=== PATIENT | female | born 1955 | race Caucasian/White ===

== ENCOUNTER → 2023-11-01 11:02 | Outpatient (REF) | payer OTHER, SELFPAY | LOC: HWWDC 11:02 | PROVIDERS: ATTENDING PHYSICIAN Family Medicine | DX: Z12.31 Encounter for screening mammogram for malignant neoplasm of breast (principal); Z87.891 Personal history of nicotine dependence | CPT/HCPCS: 71271; 77063; 77067 ==

== ENCOUNTER → 2023-11-13 14:50 | Outpatient (REF) | payer OTHER, SELFPAY | LOC: HWRAD 14:50 | PROVIDERS: ATTENDING PHYSICIAN Family Medicine | DX: Z13.820 Encounter for screening for osteoporosis (principal) | CPT/HCPCS: 77080 ==

== ENCOUNTER → 2024-04-21 06:28 | Day surgery (SDC) | payer OTHER, SELFPAY | LOC: GI 06:28 | PROVIDERS: ATTENDING PHYSICIAN Internal Medicine Gastroenterology | DX: Z12.11 Encounter for screening for malignant neoplasm of colon (principal); D12.3 Benign neoplasm of transverse colon; D12.4 Benign neoplasm of descending colon; K57.30 Diverticulosis of large intestine without perforation or abscess without bleeding; K62.1 Rectal polyp | CPT/HCPCS: 45385; 45380; 88305 ==

== ENCOUNTER → 2024-08-14 12:58 | Outpatient (REF) | payer OTHER, SELFPAY | LOC: HWRAD 12:58 | PROVIDERS: ATTENDING PHYSICIAN Physical Medicine & Rehabilitation; FAMILY PHYSICIAN Family Medicine | DX: M25.561 Pain in right knee (principal); M21.061 Valgus deformity, not elsewhere classified, right knee; M17.4 Other bilateral secondary osteoarthritis of knee | CPT/HCPCS: 73562; 73565 ==

== ENCOUNTER 2024-09-26 13:51 | Outpatient (RCR) | payer OTHER, SELFPAY | END 2024-09-26 23:59 | disposition home or self-care (01) | LOC: RPT 13:51 | PROVIDERS: ATTENDING PHYSICIAN Physical Medicine & Rehabilitation; FAMILY PHYSICIAN Family Medicine | DX: M25.561 Pain in right knee (principal); M25.562 Pain in left knee; Z73.6 Limitation of activities due to disability; R26.2 Difficulty in walking, not elsewhere classified; M62.81 Muscle weakness (generalized); M25.551 Pain in right hip | CPT/HCPCS: 97010; 97110; 97112; 97161 ==

== ENCOUNTER 2024-10-31 13:04 | Outpatient (RCR) | payer OTHER, SELFPAY | END 2024-10-31 23:59 | disposition home or self-care (01) | LOC: RPT 13:04 | PROVIDERS: ATTENDING PHYSICIAN Physical Medicine & Rehabilitation; FAMILY PHYSICIAN Family Medicine | DX: M25.561 Pain in right knee (principal); M25.562 Pain in left knee; Z73.6 Limitation of activities due to disability; R26.2 Difficulty in walking, not elsewhere classified; M62.81 Muscle weakness (generalized); M25.551 Pain in right hip | CPT/HCPCS: 97010; 97110; 97112 ==

== ENCOUNTER 2024-11-07 14:03 | Outpatient (RCR) | payer OTHER, SELFPAY | END 2024-11-07 23:59 | disposition home or self-care (01) | LOC: RPT 14:03 | PROVIDERS: ATTENDING PHYSICIAN Physical Medicine & Rehabilitation; FAMILY PHYSICIAN Family Medicine | DX: M25.561 Pain in right knee (principal); M25.562 Pain in left knee; Z73.6 Limitation of activities due to disability; R26.2 Difficulty in walking, not elsewhere classified; M62.81 Muscle weakness (generalized); M25.551 Pain in right hip | CPT/HCPCS: 97110; 97112 ==

== ENCOUNTER 2024-11-13 17:13 | Observation (INO) | payer OTHER, SELFPAY ==
[2024-11-13 13:01] VITALS: BP 179/99
[2024-11-13 13:11] VITALS: BMI 34.3
[2024-11-13 13:39] VITALS: BP 137/72
--- NOTE | 2024-11-13 14:33 | ED.GENMED ---
History of Present Illness
General
Chief Complaint: Fall
Source: patient
Time Seen by Provider: 11/13/24 14:13
History of Present Illness
History of Present Illness:
The patient is a 68-year-old female who presented to the emergency department with complaints of pain in the right knee and foot following a fall. The patient reported that she frequently experiences unsteadiness when standing, requiring her to hold
onto something until she feels stable. Early this morning, around 4:00 AM, she woke up to use the bathroom and fell while attempting to stand and walk without adequate steadiness.
After the fall, she managed to drag herself back into bed. She reports difficulty in bearing weight on the affected foot and had assistance from a friend to reach the emergency department. She described her apartment as being small, making it easier
for her to return to bed after the incident. She noted some mild soreness in other areas but denied any significant injuries or hitting her head during the fall.
Additionally, she reports no chest pain, shortness of breath, or abdominal pain.
The medications the patient is on include Synthroid (Levothyroxine), Trulicity (intrigdico), and oxycodone as needed.
Past History
Past History
ED Past Medical History: Asthma, COPD, GERD, HTN, Hypothyroidism, Psychiatric and Other (Chronic hip pain)
ED Past Surgical History: Cholecystectomy, (X2), Gynecological, Orthopedic and Other (Hernia repair)
Social History
Tobacco: Former smoker
Alcohol: None
Drug: None
Personal: Other (Seperated)
Living: with family (With her son)
Employment: Not employed
Family History
Family History: Other (Noncontributory)
Phy Exam
Physical Exam
Physical Exam:
General: Awake, Alert, Oriented X3. No acute distress.
Vitals: unremarkable
Head: Atraumatic
Eyes: Pupils equal, EOMI
Throat: Airway intact, no exudates
Neck: Trachea midline
Lungs: Clear and equal b/l
Heart: Regular rate, no murmurs
Abd: Soft, Nontender, No pulsatile mass
Rectal:
Neuro: Cranial nerves intact, muscle strength equal bilaterally, cerebellar exam normal
Skin: Warm, dry, no rash
Extremities: pulses equal b/l, no edema. enderness noted on palpation of the right foot, particularly over the lateral malleolus. Right tibia was also tender upon palpation. The patient is able to lift her right leg against gravity.
l
Course
Orders/Labs/Results
Orders:
Orders
11/13/24 14:12
CR Ankle - Right Min 3 Views * Urgent
Comment:
Reason For Exam: fall- tender
CR Knee- Right 4 Or More View* Urgent
Comment:
Reason For Exam: fall- tender
Foot, Right 3 View [CR Foot - Right Min 3 Views] Urgent
Comment:
Reason For Exam: fall- tender
11/13/24 15:26
Case Management Consult ONCE
Case Management Consult: Discharge Planning
PT Consult [Pt Eval And Treat] Urgent
Activity Level: As Tolerated
11/13/24 15:27
Acetaminophen [Tylenol] 1,000 mg PO NOW STA
11/13/24 15:28
Joao Wrap Right-Treatment ONCE
Comment: ankle
Vital Signs
Initial and Last Documented VS:
Initial Vital Signs
Temp Pulse Resp BP Pulse Ox
98.2 F 107 18 179/99 97
11/13/24 13:01 11/13/24 13:01 11/13/24 13:01 11/13/24 13:01 11/13/24 13:01
Last Documented Vital Signs
Temp Pulse Resp BP Pulse Ox
98.2 F 89 18 123/64 97
11/13/24 13:01 11/13/24 15:03 11/13/24 15:03 11/13/24 15:03 11/13/24 15:03
MDM/Problems Addressed
Differential Diagnosis Includes:
The Differential Diagnosis includes, in no particular order and is not limited to:
1. Fracture of the right knee or ankle
2. Ankle sprain
3. Ligamentous injury of the knee
4. Contusion from the fall
5. Osteoarthritis exacerbation
*Radiology
Radiology exam reviewed: preliminary read by ED provider (No acute fracture noted)
*Pulse Oximetry
Patient hypoxic: no
*Critical Care Note
Total Time (30-74mins, 75-104mins- exclusive of procedures): Not Applicable
ED Attending Note
-
Portions of this chart may have been created with voice recognition software.� Occasional wrong word or��sound alike� substitutions may have occurred due to the inherent limitations of voice recognition software.
Discharge Plan
Departure
Prescriptions:
No Action
albuterol sulfate 1 PUFF HFA aerosol inhaler
1 puff inhalation R Q4HPRN PRN (Reason: sob)
oxycodone 5 MG tablet
5 mg PO [id number] PRN (Reason: moderate pain)
Patient Comments:
08/17/2021: last filled 07/22/21, 60 tabs for 30 days from [id number]
alprazolam 1 MG tablet
1 mg PO DAILYPRN PRN (Reason: anxiety)
Patient Comments:
08/17/2021: last filled 08/08/21, 90 tabs for 30 days from [id number]
levothyroxine 100 MCG tablet
100 mcg PO DAILY
Patient Comments:
08/17/2021: BRAND NAME
bicxbgnxzta-rjlbjryzv-llcdlclp [Trelegy Ellipta] 1 EACH blister with device
1 puff inhalation R DAILY
alprazolam 1 MG tablet
1 mg PO BID
Patient Comments:
08/17/2021: last filled 08/08/21, 90 tabs for 30 days from [id number]
acetaminophen 325 MG tablet
650 mg PO Q4HPRN PRN (Reason: mild pain/PARSONS/temp> 100.4F) Qty: 100 0RF
riboflavin (vitamin B2) [Ribo-100] 100 MG tablet
400 mg PO DAILY Qty: 120 0RF
magnesium oxide 500 MG tablet
500 mg PO DAILY Qty: 30 0RF
prednisone 20 mg tablet
40 mg PO DAILY 7 Days Qty: 14 0RF
lidocaine [Lidoderm] 5 % adhesive patch,medicated
1 patch topical Q24H Qty: 15 0RF
oxycodone-acetaminophen [Percocet] 5-325 mg tablet
1 tab PO Q6HPRN PRN (Reason: pain) Qty: 7 0RF
Referrals:
Tanya Burnham DO [Family Provider, Family Practice]
Interventions
Interventions:
*Risk Screen - Suicide Last Done: 11/13/24 13:01
*General Assessment Last Done: 11/13/24 13:01
*Neglect/Abuse Screening Last Done: 11/13/24 13:01
*ED- Fall Risk Assessment Last Done: 11/13/24 13:12
*ED COVID-19 Vaccine History Last Done: 11/13/24 13:12
ED-Musculoskeletal Assessment Last Done: 11/13/24 13:12
ED- Neurological Assessment Last Done: 11/13/24 13:12
ED-Skin Assessment Last Done: 11/13/24 13:12
Discharge Date and Time
Print Language: LUXEMBOURGER
[2024-11-13 15:03] VITALS: BP 123/64
[2024-11-13] MEDS: TYLENOL 1000 MG PO (15:39)
--- NOTE | 2024-11-13 16:25 | CM ---
CM reviewed chart and met with pt bedside in ED. Pt lives alone in apartment, no KENDRA but 3 steps to BA, all other living area on one floor. Has cane whish she uses when she leaves the home, ambulates independently at home. No other DME.
Hx [facility] in past, hx acute rehab at [facility] after an accident, no hx SNF.
Seen by PT, not safe for dc home with walker
Discussed with Dr Merchant, will plan for admission overnight.
Pt agreeable to SNF or home with VN.
PCP: Tanya Burnham
Pharmacy: [facility]
Plan: home with services vs SNF pending ongoing medical evaluation
--- NOTE | 2024-11-13 16:43 | HPS.HSE ---
Family Physician
-
Family Physician: Tanya Burnham
Chief Complaint
-
right leg pain
History of Present Illness
68-year-old female past medical history of asthma/COPD, hypertension, GERD, hypothyroidism, chronic hip pain, presenting to the emergency room with right knee pain and foot following a fall. Patient frequently experiences unsteadiness when standing
requiring her to hold onto something until she feels stable. This morning at 4 AM she went up to the bathroom and fell while attempting to stand. She lives alone.
After the fall she managed to drag herself back to bed and had difficulty bearing weight on the affected foot and had assistance for friend to reach the emergency room. She has some mild soreness but denied hitting her head or significant injury.
She denies smoking or alcohol use.
Medical History
Past Medical History
Past Medical History: Reports Other (asthma/COPD, hypertension, GERD, hypothyroidism, chronic hip pain,)
Past Surgical History: Reports Other (Cholecystectomy, (X2), Gynecological, Orthopedic and Other (Hernia repair))
Social History
Tobacco: Non-smoker
Alcohol: None
Drug: None
Family History
Family History: Not pertinent
Allergies / Home Medications
Allergies reflects when Allergies were last updated in [employer].
Home Medications with original date entered in [employer] [facility]
Allergy/Medication List:
Allergies
Allergy/AdvReac Type Severity Reaction Status Date / Time
aspirin Allergy Tinnitus Verified 11/13/24 13:00
erythromycin base Allergy Vomiting Verified 11/13/24 13:00
iodine Allergy Anaphylaxis Verified 11/13/24 13:00
NSAIDS (Non-Steroidal Allergy TINNITUS Verified 11/13/24 13:00
Anti-Inflamma
pseudoephedrine HCl (From Allergy RAPID Verified 11/13/24 13:00
Sudafed) HEARTBEAT
Salicylates * Allergy Vomiting Verified 11/13/24 13:00
tramadol Allergy tremor and Verified 11/13/24 13:00
disequilibrium
Home Medications
albuterol sulfate 90 mcg/actuation aerosol inhaler 1 puff inhalation R Q4HPRN PRN sob 05/23/18
oxycodone 5 mg tablet 5 mg PO [id number] PRN moderate pain 03/19/19
fluticasone fur. 200 mcg-umeclid 62.5 mcg-vilant 25 mcg inhalat.powder (Trelegy Ellipta) 1 puff inhalation R DAILY Lung/breathing issues 08/17/21
magnesium oxide 500 mg PO DAILY #30 tabs 08/19/21
alprazolam 1 mg tablet 1 mg PO TID 11/13/24
calcium carbonate 500 mg PO DAILY 11/13/24
cholecalciferol (vitamin D3) 10 mcg (400 unit) tablet (Vitamin D3) 10 mcg PO DAILY 11/13/24
cyanocobalamin (vitamin B-12) 50 mcg tablet (Vitamin B-12) 50 mcg PO DAILY 11/13/24
levothyroxine 112 mcg tablet (Synthroid) 112 mcg PO DAILY 11/13/24
Review of Systems
-
History Source: Patient
A 12 point ROS was completed and negative except as noted: Yes
Constitutional: Reports No Symptoms
EENT: Reports No Symptoms
Respiratory: Reports No Symptoms
Cardiac: Reports No Symptoms
Abdomen/GI: Reports No Symptoms
: Reports No Symptoms
Musculoskeletal: Reports See HPI
Skin: Reports No Symptoms
Neurological: Reports No Symptoms
Endocrine: Reports No Symptoms
Hematologic/Lymphatic: Reports No Symptoms
Psych: Reports No Symptoms
Physical Exam
Vital Signs
Vital Signs
Temp Pulse Resp BP Pulse Ox
98.2 F 89 18 123/64 97
11/13/24 13:01 11/13/24 15:03 11/13/24 15:03 11/13/24 15:03 11/13/24 15:03
Physical Exam
General: Well Developed, Well Nourished and No Apparent Distress
HEENT: NormoCephalic, Moist mucous membranes and Atraumatic
Respiratory: Clear
Cardiac: S1/S2 and Regular Rhythm; No Murmur or Rub
GI: Soft, Non Tender, Non Distended and Normal Bowel Sounds; No Organomegaly
Rectal: Deferred by Provider
Musculoskeletal: No Clubbing, No Cyanosis and No Edema
Skin: No Rash
Neuro: Nonfocal/grossly intact
Data Reviewed
-
Lab Data: Labs Reviewed by me
Old Records: Reviewed
Impression/Plan
-
IMPRESSION:
PLAN:
# Right ankle/knee sprain
# Chronic arthritis with effusion of right knee
- Knee x-ray shows no evidence of fracture or dislocation, moderate to large suprapatellar joint effusion appears increased from previous radiographs
- Foot x-ray shows no evidence of acute fracture or dislocation
- Ankle x-ray negative
-Joao wrap placed
-Tylenol, home oxycodone for pain
- Case management could not place in SNF today so will be arranged for tomorrow
Asthma/COPD
- Continue albuterol, Breo
Essential hypertension
GERD
Hypothyroidism
-Continue levothyroxine
Chronic hip pain/severe arthritis
- Continue oxycodone
Anxiety
- Continue alprazolam
Full code
DVT prophylaxis�heparin
Regular diet
[2024-11-13 17:28] VITALS: BP 148/78
[2024-11-13 18:04] VITALS: BMI 33.4
[2024-11-13 18:20] VITALS: BP 150/83
[2024-11-13] MEDS: ROXICODONE 5 MG PO (18:28)
--- NOTE | 2024-11-13 19:03 | PTCARENOTE ---
Patient arrived to unit around 1810 this shift. 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 Pt reports pain in RLE. PRN oxycodone administered. Dinner ordered. Pt oriented to room and staff. All needs met at this time. Plan of care ongoing.
[2024-11-13] MEDS: SYMBICORT 160/4.5 MCG INHALER INH (20:14)
[2024-11-13] MEDS: HEPARIN 5000 UNITS SC (20:23)
[2024-11-13] MEDS: TYLENOL 650 MG PO (21:19)
[2024-11-13] MEDS: XANAX 1 MG PO (21:54)
[2024-11-13 23:05] VITALS: BP 128/75
[2024-11-14] MEDS: TYLENOL 650 MG PO (03:24)
[2024-11-14 05:17] VITALS: BMI 33.5
[2024-11-14 06:20] LABS: % Basophils 1.4 % (0-2); % Eosinophils 1.9 % (0-6); % Immature Granulocytes 0.2 % (0-0.5); % Monocytes 7.2 % (1.7-9.3); % Neutrophils 67.3 % (42.2-75.2); Absolute Basophils 0.1 10^3/uL (0-0.2); Absolute Eosinophils 0.1 10^3/uL (0-0.7); Absolute Lymphocytes 1.3 10^3/uL (1.2-3.4); Absolute Monocytes 0.4 10^3/uL (0.1-0.6); Absolute Neutrophils 3.8 10^3/uL (1.4-6.5); Hematocrit 37.7 % (37.0-47.0); Hemoglobin 13.3 g/dL (12.0-16.0); Mean Corp Hgb Conc. 35.3 g/dL (33.0-37.0); Mean Corpuscular Hgb 32.8 pg (27.0-31.0); Mean Corpuscular Volume 93.1 fL (81.0-99.0); Mean Platelet Volume 11.3 fL (7.4-10.4); Nucleated Red Blood Cells % 0 %; Platelet Count 214 10^3/uL (130-400); Red Blood Cell Count 4.05 10^6/uL (4.20-5.40); Red Cell Dist. Width 13.2 % (11.5-14.5); White Blood Cell Count 5.7 10^3/uL (4.8-10.8)
[2024-11-14] MEDS: ROXICODONE 5 MG PO ×4 (06:32→23:41)
[2024-11-14] MEDS: SYNTHROID 112 MCG PO (06:32)
[2024-11-14 06:49] LABS: ALT (SGPT) 23 U/L (0-35); AST (SGOT) 23 U/L (14-36); Alkaline Phosphatase 101 U/L (38-126); Blood Urea Nitrogen 17 mg/dl (7-17); Calcium 9.2 mg/dl (8.4-10.2); Carbon Dioxide 25 mmol/L (22-30); Chloride 108 mmol/L (98-107); Estimated Creatinine Clearance 54 ml/min; Glucose 105 mg/dl (70-99); Potassium 4.1 mmol/L (3.5-5.1); Sodium 140 mmol/L (135-145); Total Bilirubin 0.9 mg/dl (0.2-1.3); Total Protein 6.6 g/dl (6.3-8.2); eGFR > 60.00
[2024-11-14 07:00] VITALS: BP 161/81
[2024-11-14] MEDS: OSCAL CAL 500 500 MG PO (07:36)
[2024-11-14] MEDS: VITAMIN D3 (cholecalciferol) 10 MCG PO (07:36)
[2024-11-14] MEDS: HEPARIN 5000 UNITS SC ×2 (07:36→22:06)
[2024-11-14] MEDS: MAGNESIUM OXIDE 500 MG PO (07:36)
[2024-11-14] MEDS: XANAX 1 MG PO ×3 (07:36→22:07)
[2024-11-14] MEDS: VITAMIN B-12 50 MCG PO (07:36)
[2024-11-14] MEDS: SPIRIVA RESPIMAT 2.5 MCG 2 PUFF INH (07:39)
[2024-11-14] MEDS: SYMBICORT 160/4.5 MCG INHALER 2 PUFF INH ×2 (07:39→18:01)
[2024-11-14 09:29] VITALS: BP 138/73
--- NOTE | 2024-11-14 10:05 | W.PN.HOSP.TC ---
Today's Communication/Plan
-
see plan
Assessment / Plan
Assessment / Plan
Gen: NAD, AAOx3.
Eyes: EOMI, PERRLA, no scleral icterus.
Neck: supple.
CV: RRR, +S1/S2, no m/r/g.
Resp: CTAB, no rales, wheezes, or rhonchi.
Abd: +BS, soft, NT, ND
Skin: No rashes.
Neuro: CN 2-12 intact, non-focal.
Psych: Normal mood and affect.
R knee Xray: No radiographic evidence for fracture or dislocation. Degenerative changes as described, fairly stable radiographically. Moderate to large suprapatellar joint effusion, which appears increased from previous radiographs.
R foot/ankle Xray: No evidence of acute fracture or dislocation. If there are persistent clinical symptoms and further imaging evaluation is desired, consider repeat radiographs and/or MRI.
Right ankle/knee sprain
-underlying chronic arthritis with effusion of right knee
-imaging above and notable for lack of fx
-ABHIJIT wrap placed
-Tylenol, home oxycodone for pain
-Case management could not place in SNF 11/13/24
-with persistent pain would not want to miss occult fx. Check MRI R knee and R ankle
Other problems:
Asthma/COPD: continue albuterol, Breo
Essential hypertension
GERD: start PPI
Hypothyroidism: Cont Levoxyl
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
Anxiety: cont alprazolam
FULL/heparin
Anticipated Discharge: Within 24 hours
Subjective/Interval History
-
Date of Service: November 14, 2024
Still c/o pain R knee and R ankle.
Objective Data
-
Labs:
Laboratory Results
11/14/24
06:08
WBC 5.7
Hgb 13.3
Hct 37.7
Plt Count 214
Sodium 140
Potassium 4.1
Chloride 108 H
Carbon Dioxide 25
BUN 17
Creatinine 1.0
Glucose 105 H
Calcium 9.2
Total Bilirubin 0.9
AST 23
ALT 23
Alkaline Phosphatase 101
Vital Signs:
Vital Signs
Temp Pulse Resp BP Pulse Ox
97.4 F 72 18 138/73 97
11/14/24 07:00 11/14/24 09:29 11/14/24 07:44 11/14/24 09:29 11/14/24 07:44
I&O
11/13/24 11/14/24 11/15/24
06:59 06:59 06:59
Intake Total 1340 / 1340
Balance 1340 / 1340
--- NOTE | 2024-11-14 10:48 | CM ---
Met with patient
OBS status - form reviewed with patient, verbalize understanding, placed in chart
PT rec SNF
options reviewed - prefer [facility]
Referrals entered in [facility]
WILL NEED TO OBTAIN INS auth
PLAN: SNF, pending bed availability, when stable, will need to obtain insurance auth
[2024-11-14] MEDS: PROTONIX 40 MG PO (10:55)
[2024-11-14 15:00] VITALS: BP 129/63
[2024-11-14 23:48] VITALS: BP 157/85
[2024-11-15] MEDS: SYNTHROID 112 MCG PO (05:44)
[2024-11-15 07:00] VITALS: BP 132/73
[2024-11-15] MEDS: SPIRIVA RESPIMAT 2.5 MCG 2 PUFF INH (07:44)
[2024-11-15] MEDS: SYMBICORT 160/4.5 MCG INHALER 2 PUFF INH ×2 (07:44→19:28)
--- NOTE | 2024-11-15 07:54 | W.PN.HOSP.TC ---
Today's Communication/Plan
-
see plan
Assessment / Plan
Assessment / Plan
Gen: NAD, AAOx3.
Eyes: EOMI, PERRLA, no scleral icterus.
Neck: supple.
CV: remains RRR, +S1/S2, no m/r/g.
Resp: CTAB anteriorly, no rales, wheezes, or rhonchi.
Abd: remains +BS, soft, NT, ND
Skin: No rashes.
Neuro: CN 2-12 intact, non-focal.
Psych: Normal mood and affect.
R knee Xray: No radiographic evidence for fracture or dislocation. Degenerative changes as described, fairly stable radiographically. Moderate to large suprapatellar joint effusion, which appears increased from previous radiographs.
R foot/ankle Xray: No evidence of acute fracture or dislocation. If there are persistent clinical symptoms and further imaging evaluation is desired, consider repeat radiographs and/or MRI.
MRI R knee:
1. ACUTE NONDISPLACED FRACTURE of the RIGHT FIBULAR HEAD.
2. Complete rupture of the fibular collateral ligament and fibular attachment of the biceps femoris tendon.
3. VERY SEVERE ARTHRITIS in the LATERAL COMPARTMENT with extensive full-thickness cartilage wear and scalloping of the articular surface of the lateral femoral condyle. Large lateral compartment osteophytes and severe complex tear of the lateral
meniscus.
4. Mild cartilage wear in the medial and patellofemoral compartments.
5. Large joint effusion containing synovitis.
6. Small Mcpherson's cyst.
R fibular head fx, Right ankle sprain
-underlying chronic arthritis with effusion of right knee
-imaging above and notable for acute nondisplaced fracture of the right fibular head
-NWB to RLE until seen by ortho
-R ankle MRI read pending
-consult orthopedics
-ABHIJIT wrap placed
-Tylenol, home oxycodone for pain
Other problems:
Asthma/COPD: continue albuterol, Breo
Essential hypertension
GERD: cont PPI
Hypothyroidism: Cont Levoxyl
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
Anxiety: cont alprazolam
FULL/heparin
Anticipated Discharge: Within 24 hours
Subjective/Interval History
-
Date of Service: November 15, 2024
No new complaints.
Objective Data
-
Vital Signs:
Vital Signs
Temp Pulse Resp BP Pulse Ox
97.8 F 80 18 132/73 98
11/15/24 07:00 11/15/24 07:48 11/15/24 07:48 11/15/24 07:00 11/15/24 07:48
I&O
11/14/24 11/15/24 11/16/24
06:59 06:59 06:59
Intake Total 1340 / 1340 1680 / 1680
Balance 1340 / 1340 1680 / 1680
[2024-11-15] MEDS: LIDOCAINE 4% PATCH 1 PATCH TOPICAL (08:22)
[2024-11-15] MEDS: VITAMIN D3 (cholecalciferol) 10 MCG PO (08:22)
[2024-11-15] MEDS: XANAX 1 MG PO ×3 (08:22→20:49)
[2024-11-15] MEDS: MAGNESIUM OXIDE 500 MG PO (08:22)
[2024-11-15] MEDS: OSCAL CAL 500 500 MG PO (08:22)
[2024-11-15] MEDS: PROTONIX 40 MG PO (08:23)
[2024-11-15] MEDS: VITAMIN B-12 50 MCG PO (08:23)
[2024-11-15] MEDS: HEPARIN 5000 UNITS SC ×2 (08:23→20:47)
[2024-11-15] MEDS: ROXICODONE 5 MG PO ×3 (08:30→20:57)
[2024-11-15] MEDS: DILAUDID 0.5 MG IV ×4 (10:43→23:50)
--- NOTE | 2024-11-15 13:23 | CON.ORTHO ---
Consultation
-
Date/Time Consultation Requested: 11/15/24
Date/Time Consultation Performed: 11/15/24 @1:00pm
Requesting Provider: Nighat
Performing Provider: Diann Buckner PA-C, Beto Martins MD
Reason for Consultation: right knee and ankle pain
Consultation - Orthopedics
History
HPI: 68yo female admitted to [facility] for ambulatory dysfunction. She reports that about one month ago, she had a fall while cleaning her kitchen where she landed on both knees. She did see her PCP who prescribed physical therapy. She has
been working with therapy. but states that this past Sunday, she got up in the middle of the night and tripped and fell. She landed on her right side. She has had pain to the right knee and ankle. She presented to the ER for evaluation. She had
xrays of the knee and ankle as well and ankle and knee MRI complete. Orthopedics has been consulted for further recommendations. She reports that her pain is manageable with pain medications.
PAST MEDICAL HISTORY: asthma/COPD, hypertension, GERD, hypothyroidism, chronic hip pain,
PAST SURGICAL HISTORY: Cholecystectomy, (X2), Gynecological, Orthopedic, Hernia repair
SOCIAL HISTORY: lives alone in her apartment. denies tobacco, alcohol. ambulates with a cane
Allergies / Home Medications
Allergy/AdvReac Type Severity Reaction Status Date / Time
aspirin Allergy Tinnitus Verified 11/13/24 13:00
erythromycin base Allergy Vomiting Verified 11/13/24 13:00
iodine Allergy Anaphylaxis Verified 11/13/24 13:00
NSAIDS (Non-Steroidal Allergy TINNITUS Verified 11/13/24 13:00
Anti-Inflamma
pseudoephedrine HCl (From Allergy RAPID Verified 11/13/24 13:00
Sudafed) HEARTBEAT
Salicylates * Allergy Vomiting Verified 11/13/24 13:00
tramadol Allergy tremor and Verified 11/13/24 13:00
disequilibrium
�Medication �Instructions �Recorded
albuterol sulfate 90 mcg/actuation 1 puff inhalation R Q4HPRN PRN sob 05/23/18
aerosol inhaler
oxycodone 5 mg tablet 5 mg PO [id number] PRN moderate pain 03/19/19
fluticasone fur. 200 mcg-umeclid 1 puff inhalation R DAILY 08/17/21
62.5 mcg-vilant 25 mcg Lung/breathing issues
inhalat.powder (Trelegy Ellipta)
magnesium oxide 500 mg PO DAILY #30 tabs 08/19/21
alprazolam 1 mg tablet 1 mg PO TID Mental Health/Anxiety 11/13/24
calcium carbonate 500 mg PO DAILY Supplement 11/13/24
cholecalciferol (vitamin D3) 10 10 mcg PO DAILY Supplement 11/13/24
mcg (400 unit) tablet (Vitamin D3)
cyanocobalamin (vitamin B-12) 50 50 mcg PO DAILY Supplement 11/13/24
mcg tablet (Vitamin B-12)
levothyroxine 112 mcg tablet 112 mcg PO DAILY Thyroid 11/13/24
(Synthroid)
Vital Signs / Lab Results
Temp Pulse Resp BP Pulse Ox
97.8 F 80 18 132/73 98
11/15/24 07:00 11/15/24 07:48 11/15/24 07:48 11/15/24 07:00 11/15/24 07:48
11/14/24 06:08
11/14/24 06:08
RADIOGRAPHIC FINDINGS:
Xrays Right Foot & Ankle: No evidence of acute fracture or dislocation.
Xrays Right Knee: No radiographic evidence for fracture or dislocation. Degenerative changes as described, fairly stable radiographically. Moderate to large suprapatellar joint effusion, which appears increased from previous radiographs.
Ankle MRI: Acute partial tear of the anterior talofibular ligament. Small full-thickness cartilage defect over the tibial plafond. Moderate tenosynovitis around the posterior tibial, flexor digitorum longus, and flexor hallucis longus tendons in the
ankle and foot. Mild tendinosis of the peroneal tendons. Mild to moderate diffuse muscle atrophy. Moderate multifocal subcutaneous edema throughout the ankle and foot.
Knee MRI: ACUTE NONDISPLACED FRACTURE of the RIGHT FIBULAR HEAD. Complete rupture of the fibular collateral ligament and fibular attachment of the biceps femoris tendon. VERY SEVERE ARTHRITIS in the LATERAL COMPARTMENT with extensive full-thickness
cartilage wear and scalloping of the articular surface of the lateral femoral condyle. Large lateral compartment osteophytes and severe complex tear of the lateral meniscus. Mild cartilage wear in the medial and patellofemoral compartments. Large
joint effusion containing synovitis. Small Mcpherson's cyst.
PHYSICAL EXAM:
General: no acute distress. patient is sitting up on side of bed
HEENT: NCAT, sclera anicteric, normal hearing
Heart: No JVD
Lungs: Normal work of breathing on room air
MSK: Directed exam of right knee and ankle performed. Skin intact. +edema ad ecchymosis to right ankle and foot. no discolorations of right knee. +TTP over ATFL. +TTP over fibular head and lateral joint line. Full ROM of knee. decreased ROM of ankle
due to pain. calf soft and nontender. NVI distally
Assessment / Plan
ASSESSMENT/PLAN:
Right nondisplaced fibular head fracture; Right lateral ankle sprain
--May be weight bearing as tolerated to the right leg. Continue to ambulate with cane, can consider walker to allow for more offloading in the setting of her acute injuries
--No need for brace to knee
--Can consider ankle brace if ABHIJIT wrap insufficient. She currently feels comfortable with the ABHIJIT wrap
--Recommend ice and elevation often
--Continue with pain medications as needed
--PT/OT evaluation
--Case management consult for discharge planning
--Follow up outpatient in 2 week for repeat xray of right knee and re-evaluation of right ankle
--Orthopedics will sign off for now. Please reach out with any questions or concerns
[2024-11-15 15:00] VITALS: BP 150/65
[2024-11-15 16:09] VITALS: BP 128/103; BP 134/67; PULSE 80; O2SAT 95
[2024-11-15 23:00] VITALS: BP 129/66
[2024-11-16 06:07] LABS: Hematocrit 38.9 % (37.0-47.0); Hemoglobin 13.2 g/dL (12.0-16.0); Mean Corp Hgb Conc. 33.9 g/dL (33.0-37.0); Mean Corpuscular Hgb 31.8 pg (27.0-31.0); Mean Corpuscular Volume 93.7 fL (81.0-99.0); Mean Platelet Volume 11.4 fL (7.4-10.4); Platelet Count 202 10^3/uL (130-400); Red Blood Cell Count 4.15 10^6/uL (4.20-5.40); Red Cell Dist. Width 13.2 % (11.5-14.5); White Blood Cell Count 6.9 10^3/uL (4.8-10.8)
[2024-11-16] MEDS: ROXICODONE 5 MG PO ×3 (06:33→20:30)
[2024-11-16] MEDS: SYNTHROID 112 MCG PO (06:34)
[2024-11-16 06:35] LABS: Blood Urea Nitrogen 20 mg/dl (7-17); Calcium 9.7 mg/dl (8.4-10.2); Carbon Dioxide 28 mmol/L (22-30); Chloride 105 mmol/L (98-107); Estimated Creatinine Clearance 49 ml/min; Glucose 107 mg/dl (70-99); Potassium 4.6 mmol/L (3.5-5.1); Sodium 139 mmol/L (135-145); eGFR 54.06
[2024-11-16 07:00] VITALS: BP 132/65
[2024-11-16] MEDS: MAGNESIUM OXIDE 500 MG PO (07:17)
[2024-11-16] MEDS: VITAMIN D3 (cholecalciferol) 10 MCG PO (07:17)
[2024-11-16] MEDS: XANAX 1 MG PO ×3 (07:17→21:50)
[2024-11-16] MEDS: PROTONIX 40 MG PO (07:17)
[2024-11-16] MEDS: OSCAL CAL 500 500 MG PO (07:17)
[2024-11-16] MEDS: LIDOCAINE 4% PATCH 1 PATCH TOPICAL (07:17)
[2024-11-16] MEDS: VITAMIN B-12 50 MCG PO (07:17)
[2024-11-16] MEDS: HEPARIN 5000 UNITS SC ×2 (07:18→20:30)
[2024-11-16] MEDS: SPIRIVA RESPIMAT 2.5 MCG 2 PUFF INH (07:39)
[2024-11-16] MEDS: SYMBICORT 160/4.5 MCG INHALER 2 PUFF INH ×2 (07:40→20:09)
[2024-11-16] MEDS: DILAUDID 0.5 MG IV ×2 (09:29→16:35)
--- NOTE | 2024-11-16 12:30 | W.PN.HOSP.TC ---
Today's Communication/Plan
-
see plan
Assessment / Plan
Assessment / Plan
Gen: NAD, AAOx3.
Eyes: EOMI, PERRLA, no scleral icterus.
Neck: supple.
CV: continues to remain RRR, +S1/S2, no m/r/g.
Resp: CTAB anteriorly, no rales, wheezes, or rhonchi.
Abd: continues to remain +BS, soft, NT, ND
Skin: No rashes.
Neuro: CN 2-12 intact, non-focal.
Psych: Normal mood and affect.
R knee Xray: No radiographic evidence for fracture or dislocation. Degenerative changes as described, fairly stable radiographically. Moderate to large suprapatellar joint effusion, which appears increased from previous radiographs.
R foot/ankle Xray: No evidence of acute fracture or dislocation. If there are persistent clinical symptoms and further imaging evaluation is desired, consider repeat radiographs and/or MRI.
MRI R knee:
1. ACUTE NONDISPLACED FRACTURE of the RIGHT FIBULAR HEAD.
2. Complete rupture of the fibular collateral ligament and fibular attachment of the biceps femoris tendon.
3. VERY SEVERE ARTHRITIS in the LATERAL COMPARTMENT with extensive full-thickness cartilage wear and scalloping of the articular surface of the lateral femoral condyle. Large lateral compartment osteophytes and severe complex tear of the lateral
meniscus.
4. Mild cartilage wear in the medial and patellofemoral compartments.
5. Large joint effusion containing synovitis.
6. Small Mcpherson's cyst.
MRI R ankle:
1. Acute partial tear of the anterior talofibular ligament.
2. Small full-thickness cartilage defect over the tibial plafond.
3. Moderate tenosynovitis around the posterior tibial, flexor digitorum longus, and flexor hallucis longus tendons in the ankle and foot.
4. Mild tendinosis of the peroneal tendons.
5. Mild to moderate diffuse muscle atrophy.
6. Moderate multifocal subcutaneous edema throughout the ankle and foot.
R fibular head fx, Right ankle acute partial tear of the anterior talofibular ligament:
-underlying chronic arthritis with effusion of right knee
-imaging above and notable for acute nondisplaced fracture of the right fibular head and Right ankle acute partial tear of the anterior talofibular ligament
-ortho saw in c/s
-may be weight bearing RLE
-repeat Xray R knee in 2 weeks
-ABHIJIT wrap placed to R ankle
-Tylenol, home oxycodone for pain
Other problems:
Asthma/COPD: continue albuterol, Breo
Essential hypertension
GERD: cont PPI
Hypothyroidism: Cont Levoxyl
Chronic hip pain/severe arthritis: cont [employer] oxycodone
Anxiety: cont alprazolam
FULL/heparin
Medically cleared for discharge pending L knee Xray. Case management aware.
Anticipated Discharge: Within 24 hours
Subjective/Interval History
-
Date of Service: November 16, 2024
Pt states that her L knee now has pain. She believes it's due to 'compensation' of her RLE pain.
Objective Data
-
Labs:
Laboratory Results
11/16/24
05:46
WBC 6.9
Hgb 13.2
Hct 38.9
Plt Count 202
Sodium 139
Potassium 4.6
Chloride 105
Carbon Dioxide 28
BUN 20 H
Creatinine 1.1 H
Glucose 107 H
Calcium 9.7
Vital Signs:
Vital Signs
Temp Pulse Resp BP Pulse Ox
97.8 F 68 16 132/65 95
11/16/24 07:00 11/16/24 07:45 11/16/24 07:45 11/16/24 07:00 11/16/24 07:45
I&O
11/15/24 11/16/24 11/17/24
06:59 06:59 06:59
Intake Total 1680 / 1680 3240 / 3240
Balance 1680 / 1680 3240 / 3240
--- NOTE | 2024-11-16 13:23 | CM ---
LM with Rizwan Weir to confirm bed .
Referral for [facility].
Will need auth .
PLAn To Snf after located and auth obtained
[2024-11-16 15:00] VITALS: BP 138/67
[2024-11-16] MEDS: COLACE 100 MG PO (21:50)
[2024-11-16 23:00] VITALS: BP 154/84
[2024-11-17] MEDS: DILAUDID 0.5 MG IV ×3 (04:34→14:05)
[2024-11-17] MEDS: SYNTHROID 112 MCG PO (04:34)
[2024-11-17 07:10] VITALS: BP 139/65
[2024-11-17] MEDS: SYMBICORT 160/4.5 MCG INHALER 2 PUFF INH (07:25)
[2024-11-17] MEDS: SPIRIVA RESPIMAT 2.5 MCG 2 PUFF INH (07:25)
[2024-11-17] MEDS: HEPARIN 5000 UNITS SC (08:09)
[2024-11-17] MEDS: PROTONIX 40 MG PO (08:09)
[2024-11-17] MEDS: VITAMIN B-12 50 MCG PO (08:09)
[2024-11-17] MEDS: LIDOCAINE 4% PATCH 1 PATCH TOPICAL (08:09)
[2024-11-17] MEDS: OSCAL CAL 500 500 MG PO (08:10)
[2024-11-17] MEDS: XANAX 1 MG PO ×2 (08:10→17:11)
[2024-11-17] MEDS: MAGNESIUM OXIDE 500 MG PO (08:10)
[2024-11-17] MEDS: VITAMIN D3 (cholecalciferol) 10 MCG PO (08:12)
--- NOTE | 2024-11-17 08:38 | W.PN.HOSP.TC ---
Today's Communication/Plan
-
Discharge today
Assessment / Plan
Assessment / Plan
Physical Exam
Gen: Not in acute distress
HEENT: Normocephalic
Neck: Supple
CV: continues to remain RRR, +S1/S2, no m/r/g.
Resp: CTAB anteriorly
Abd: continues to remain +BS, soft, NT, ND
Skin: Warm. Dry.
Neuro: CN 2-12 intact, non-focal.
Psych: Normal mood and affect.
R knee Xray: No radiographic evidence for fracture or dislocation. Degenerative changes as described, fairly stable radiographically. Moderate to large suprapatellar joint effusion, which appears increased from previous radiographs.
R foot/ankle Xray: No evidence of acute fracture or dislocation. If there are persistent clinical symptoms and further imaging evaluation is desired, consider repeat radiographs and/or MRI.
MRI R knee:
1. ACUTE NONDISPLACED FRACTURE of the RIGHT FIBULAR HEAD.
2. Complete rupture of the fibular collateral ligament and fibular attachment of the biceps femoris tendon.
3. VERY SEVERE ARTHRITIS in the LATERAL COMPARTMENT with extensive full-thickness cartilage wear and scalloping of the articular surface of the lateral femoral condyle. Large lateral compartment osteophytes and severe complex tear of the lateral
meniscus.
4. Mild cartilage wear in the medial and patellofemoral compartments.
5. Large joint effusion containing synovitis.
6. Small Mcpherson's cyst.
MRI R ankle:
1. Acute partial tear of the anterior talofibular ligament.
2. Small full-thickness cartilage defect over the tibial plafond.
3. Moderate tenosynovitis around the posterior tibial, flexor digitorum longus, and flexor hallucis longus tendons in the ankle and foot.
4. Mild tendinosis of the peroneal tendons.
5. Mild to moderate diffuse muscle atrophy.
6. Moderate multifocal subcutaneous edema throughout the ankle and foot.
Assessment/Plan
R fibular head fx, Right ankle acute partial tear of the anterior talofibular ligament (Right nondisplaced fibular head fracture; Right lateral ankle sprain)
-underlying chronic arthritis with effusion of right knee
-imaging above and notable for acute nondisplaced fracture of the right fibular head and Right ankle acute partial tear of the anterior talofibular ligament
-ortho saw in c/s
-Activity: May be weight bearing as tolerated to the right leg. Continue to ambulate with cane, can consider walker to allow for more offloading in the setting of her acute injuries
-Follow up outpatient in 2 week for repeat x-ray of right knee and re-evaluation of right ankle
-Consider ankle brace if ABHIJIT wrap insufficient
-Ice and elevation often
-Tylenol, home oxycodone for pain
Other problems:
Asthma/COPD: continue albuterol, Breo
Essential hypertension
GERD: cont PPI
Hypothyroidism: Cont Levoxyl
Chronic hip pain/severe arthritis: cont [employer] oxycodone
Anxiety: cont alprazolam
FULL/heparin
More than 30 minutes spent in discharge including
Final examination of the patient
Summarizing hospital stay
Instructions for continuing care to all relevant caregivers
Preparation of discharge records, prescriptions, and referral forms
Total time spent (in minutes): 37
Anticipated Discharge: Today
Subjective/Interval History
-
Date of Service: November 17, 2024
Patient was seen and examined. She denied any new symptoms or complaints.
Objective Data
-
Vital Signs:
Vital Signs
Temp Pulse Resp BP Pulse Ox
97.9 F 80 16 139/65 96
11/17/24 07:10 11/17/24 07:30 11/17/24 07:30 11/17/24 07:10 11/17/24 07:30
I&O
11/16/24 11/17/24 11/18/24
06:59 06:59 06:59
Intake Total 3240 / 3240 2400 / 2400
Balance 3240 / 3240 2400 / 2400
[2024-11-17 11:49] VITALS: BP 146/73; BP 158/69; PULSE 73; O2SAT 96
[2024-11-17 11:50] VITALS: BP 146/73; BP 158/69; PULSE 73; O2SAT 96
--- NOTE | 2024-11-17 12:58 | CM ---
Addendum entered by Maureen Katz 11/17/24 14:33:
5:30PM transport to [facility] [place] updated
Addendum entered by Maureen Katz 11/17/24 13:48:
Correction: N/A IMM - patient obs - form in chart
Original Note:
Bed available at [facility] today
IMM explained & signed. In chart
tt hospitalist-stable for dc
Rizwan NPI #: [id number]
Dr. Reece Guerrero NPI #: [id number]
CM called & spoke with Sofia [phone]
Auth obtained start date 11/17/24 NRD 11/21/24
AUTH APPROVAL #: [id number]
Call with updates to [phone]
Called [facility] at [facility] & information given
PLAN: [facility]
Report #: [phone]
Fax #: [phone]
wheelchair van transport
--- NOTE | 2024-11-17 14:06 | CM ---
Pt cleared for discharge. Ambulance transport requested for transfer to [facility].
Plan: Transfer to [facility] today via ambulance.
PLAN: [facility]
Report #: [phone]
Fax #: [phone]
Ambulance transport
--- NOTE | 2024-11-17 14:55 | W.DCSUMMARY ---
Discharge Summary
Discharge Data
Date of Admission: 11/13/24
Date of Discharge: 11/17/24
Total time spent discharging patient (in min): 37
-
Pending Results: No
Hospital Course
68-year-old female with past medical history of asthma/COPD, hypertension, GERD, hypothyroidism and chronic hip pain, presented to the emergency room with right knee pain and foot following a fall. Patient had x-rays done which were overall
unremarkable. Patient's right knee x-ray showed moderate to large suprapatellar joint effusion, which appeared to be increased from previous radiographs. Given persistent pain, there was concern for occult fracture and MRI was ordered -- and the MRI
showed acute nondisplaced fracture of the right fibular head, as well as complete rupture of the fibular collateral ligament and fibular attachment of the biceps femoris tendon, severe complex tear of the right knee lateral meniscus, large joint
effusion with synovitis, small Mcpherson's cyst, arthritis -- orthopedics was consulted. Orthopedics recommended conservative management, and to follow-up with outpatient orthopedics in about 2 weeks for repeat imaging and evaluation. Patient was stable
for discharge.
Discharge Plan
-
Patient Disposition: Longterm/SNF
Discharge Diagnosis/Procedures: Right knee moderate to large suprapatellar joint effusion
Right nondisplaced fibular head fracture and right lateral ankle sprain
Asthma/COPD
Essential Hypertension
Gastroesophageal Reflux Disease
Hypothyroidism
Chronic hip pain/severe arthritis
Anxiety
MRI Right Ankle (as per radiologist's report):
'IMPRESSION:
1. Acute partial tear of the anterior talofibular ligament.
2. Small full-thickness cartilage defect over the tibial plafond.
3. Moderate tenosynovitis around the posterior tibial, flexor digitorum longus, and flexor hallucis longus tendons in the ankle and foot.
4. Mild tendinosis of the peroneal tendons.
5. Mild to moderate diffuse muscle atrophy.
6. Moderate multifocal subcutaneous edema throughout the ankle and foot.'
MRI Right Knee (as per radiologist's report):
'IMPRESSION:
1. ACUTE NONDISPLACED FRACTURE of the RIGHT FIBULAR HEAD.
2. Complete rupture of the fibular collateral ligament and fibular attachment of the biceps femoris tendon.
3. VERY SEVERE ARTHRITIS in the LATERAL COMPARTMENT with extensive full-thickness cartilage wear and scalloping of the articular surface of the lateral femoral condyle. Large lateral compartment osteophytes and severe complex tear of the lateral
meniscus.
4. Mild cartilage wear in the medial and patellofemoral compartments.
5. Large joint effusion containing synovitis.
6. Small Mcpherson's cyst.'
Left Knee X-Ray (as per radiologist's report):
'IMPRESSION:
Marked degenerative changes without progression.
No findings to suggest recent cortical fracture.
Suspected suprapatellar effusion, similar in size to prior study.'
Condition: Good
Diet: As tolerated, Low Sodium and 2 Gram Sodium
Activity: Other activity
Additional Activity: May be weight bearing as tolerated to the right leg. Continue to ambulate with cane, can consider walker to allow for more offloading in the setting of the acute injuries.
Activity Restrictions/Additional Instructions:
ACTIVITY: May be weight bearing as tolerated to the right leg. Continue to ambulate with cane, can consider walker to allow for more offloading in the setting of the acute injuries.
Follow up outpatient in 2 week for repeat x-ray of right knee and re-evaluation of right ankle with Dr. Beto Martins's (orthopedics) office
Consider ankle brace if ABHIJIT wrap insufficient
Ice and elevation often
WATCH FOR OVERSEDATION GIVEN PATIENT IS ON ALPRAZOLAM OUTPATIENT AND TAKES THAT REGULARLY -- MAY NEED TO HOLD OXYCODONE
Referrals:
Tanya Burnham, DO [Family Provider, Family Practice] - in less than 1 week
Referral Note: Hospital Follow-Up
Beto Martins MD [Active, Orthopedics] - in one to two weeks
Referral Note: Hospital Follow-Up: repeat x-ray of right knee and re-evaluation of right ankle
Prescriptions:
New
lidocaine 4 % Adhesive Patch,Medicated
1 patch topical DAILY Qty: 10 0RF
Rx Instructions:
Apply one patch to right ankle. Remove patch every evening.
docusate sodium 100 mg Capsule
100 mg PO BIDPRN PRN (Reason: constipation) Qty: 10 0RF
acetaminophen 325 mg Tablet
650 mg PO Q4HPRN PRN (Reason: mild pain/PARSONS/temp> 100.4F) Qty: 20 0RF
polyethylene glycol 3350 [Miralax] 17 gram powder in packet
17 g PO DAILY Qty: 14 0RF
Continued
albuterol sulfate 1 PUFF HFA aerosol inhaler
1 puff inhalation R Q4HPRN PRN (Reason: sob)
Trelegy Ellipta 1 EACH blister with device
1 puff inhalation R DAILY
magnesium oxide 500 MG tablet
500 mg PO DAILY Qty: 30 0RF
Vitamin B-12 50 mcg Tablet
50 mcg PO DAILY
Patient Comments:
patient unsure of dose
calcium carbonate 500 mg calcium (1,250 mg) Tablet
500 mg PO DAILY
Patient Comments:
patient unsure of fose
cholecalciferol (vitamin D3) [Vitamin D3] 10 mcg (400 unit) Tablet
10 mcg PO DAILY
Patient Comments:
unsure of dose
levothyroxine [Synthroid] 112 mcg tablet
112 mcg PO DAILY
oxycodone 5 MG tablet
5 mg PO P49HURY PRN (Reason: severe pain) Qty: 7 0RF
alprazolam 1 mg tablet
1 mg PO TID Qty: 7 0RF
Discharge Orders:
Discharge Patient (As Directed); Ordered 11/17/24
Ordered By: Adair Tapia
Discharge Date and Time
Discharge Date/Time: 11/17/24 18:19
Print Language: AMHARIC
[2024-11-17 15:11] VITALS: BP 154/86
[2024-11-17 17:18] VITALS: BP 138/77
== END 2024-11-17 18:19 ==
LOC: 3 WEST ACU 17:13
PROVIDERS: Internal Medicine; ADMITTING PHYSICIAN Hospitalist; ATTENDING PHYSICIAN Hospitalist; CONSULT PHYSICIAN Orthopaedic Surgery; EMERGENCY PHYSICIAN Emergency Medicine; FAMILY PHYSICIAN Family Medicine
DX: S82.831A Other fracture of upper and lower end of right fibula, initial encounter for closed fracture (principal); S83.271A Complex tear of lateral meniscus, current injury, right knee, initial encounter; M17.11 Unilateral primary osteoarthritis, right knee; M25.561 Pain in right knee; J44.89 Other specified chronic obstructive pulmonary disease; I10 Essential (primary) hypertension; E03.9 Hypothyroidism, unspecified; G89.29 Other chronic pain; K21.9 Gastro-esophageal reflux disease without esophagitis; F41.9 Anxiety disorder, unspecified; R60.0 Localized edema; R26.81 Unsteadiness on feet; M62.571 Muscle wasting and atrophy, not elsewhere classified, right ankle and foot; M25.559 Pain in unspecified hip; M25.461 Effusion, right knee; M71.21 Synovial cyst of popliteal space [Baker], right knee; M65.971 Unspecified synovitis and tenosynovitis, right ankle and foot; W06.XXXA Fall from bed, initial encounter; Y93.89 Activity, other specified; Y92.003 Bedroom of unspecified non-institutional (private) residence as the place of occurrence of the external cause; Z79.890 Hormone replacement therapy; Z79.85 Long-term (current) use of injectable non-insulin antidiabetic drugs; Z79.891 Long term (current) use of opiate analgesic; Z87.891 Personal history of nicotine dependence; Z90.49 Acquired absence of other specified parts of digestive tract; Z60.2 Problems related to living alone; Z88.5 Allergy status to narcotic agent; Z88.8 Allergy status to other drugs, medicaments and biological substances; Z88.6 Allergy status to analgesic agent; Z88.1 Allergy status to other antibiotic agents; Z91.041 Radiographic dye allergy status; Z79.899 Other long term (current) drug therapy; Z79.51 Long term (current) use of inhaled steroids
CPT/HCPCS: 73560; 73564; 73610; 73630; 73721; 80048; 80053; 85025; 85027; 94640; 97116; 97166; 97530; 97535; 99285; G0378